=== PATIENT | male | born 1980 | race African-American/Black ===

== ENCOUNTER 2017-03-23 15:24 | Inpatient (IN) | payer OTHER ==
[~2017-03-23] VITALS: Ht 175.3 cm; Wt 78.0 kg
--- NOTE | ~2017-03-23 | HC ---
[facility] [place] [address] CONSULTATION Name: CHRISTINE EMANUEL Room #: 316-P ADM IN M.R.#: [id number] Admission: 03/23/17 Attend Phys: Ayad Grullon MD Discharge: Date of : 82 Report #: [id number] THIS REPORT FOR: //name// CC: [facility] physician/PCP Ayad Grullon REASON FOR CONSULTATION: Acute kidney injury. REASON FOR PRESENTATION: Not feeling well. HISTORY OF PRESENT ILLNESS: The patient is known to have sarcoidosis since 2008. He presented with numerous complaints including not being able to handle his daily activities and not feeling well in the last few days. His presentation values revealed hypercalcemia and acute kidney injury. His history dates back to 2008 when he had 1 biopsy that showed sarcoidosis. His presenting symptoms to [facility] at that time were numerous and nonspecific. He tells me that he had been treated occasionally with steroids. His most recent hospitalization was back in November of this year in [facility] and at that time, he was told that he had acute kidney injury and was prescribed steroids with resolution of his acute kidney injury as he stated. He was prescribed some refills of the steroids. He used to self manage himself with taper of the steroids. He does not recall his most recent values of his kidney function, but he was told the creatinine is running anywhere from 3-4. This is conflicting with what he was told in [facility] where he was told that his acute kidney injury had resolved. PAST MEDICAL HISTORY: Sarcoidosis. PAST SURGICAL HISTORY: Lung biopsy. SOCIAL HISTORY: No drug or alcohol abuse. He works as a pharmacy student. FAMILY HISTORY: Significant for sarcoidosis in his mother. MEDICATIONS: Include tapered dose steroids. REVIEW OF SYSTEMS: GENERAL: Significant for weakness. CARDIOVASCULAR: No chest pain or palpitation. PULMONARY: No cough or hemoptysis. GASTROINTESTINAL: Decreased p.o. intake. GENITOURINARY: Decreased urine output. MUSCULOSKELETAL: Occasional arthralgias. PHYSICAL EXAMINATION: GENERAL: The patient is alert, oriented, in no apparent distress. VITAL SIGNS: Blood pressure is marginal at 102/60. He is afebrile. [facility] [address] [place] [address] CONSULTATION Name: CHRISTINE EMANUEL Room #: 316-P ADM IN M.R.#: [id number] Admission: 03/23/17 Attend Phys: Ayad Grullon MD Discharge: Date of : 82 Report #: [id number] HEAD AND NECK: No jugular venous distention. There is a midline scar in the suprasternal area. CARDIOVASCULAR: Regular with no rub detected. CHEST: Clear to auscultation bilaterally. ABDOMEN: Soft, nontender with no hepatosplenomegaly. LOWER EXTREMITIES: Old rash on both lower extremities. UPPER EXTREMITIES: Multiple tattoos. LABORATORY VALUES: Reviewed. Creatinine is 6. Calcium is down. ASSESSMENT, IMPRESSION AND PLAN: 1. Acute kidney injury. 2. Hypercalcemia. 3. Sarcoidosis. 4. We will initiate the appropriate acute kidney injury workup. The most important issue right now is to obtain his records from the [facility] facilities and I have ordered those to be retrieved. 5. Aggressive hydration. 6. Since he has been on steroids on numerous occasions, I would definitely rule out hypoadrenalism. 7. We will defer the management of the steroids issues to the primary team, though I would have liked him to be off the steroids for a possibility of kidney biopsy in case his kidney function does not improve to rule out granulomatous kidney disease related to his sarcoidosis given the . 8. We will continue to follow along. <ELECTRONICALLY SIGNED> By: Fam Dasilva MD 03/27/17 0830 1002 16 Fam Dasilva MD /nt
[2017-03-23 15:25] VITALS: BP 115/73
[2017-03-23 16:26] LABS: HEMATOCRIT 41.2 % (42.0-52.0); HEMOGLOBIN 13.8 gm/dL (14.0-18.0); MCH 27.7 pg (26.0-34.0); MCHC 33.4 g/dL (28.0-37.0); PLATELET COUNT 278 thou/uL (150-400); RBC 4.97 mil/uL (4.50-6.00); RDW 14.8 % (10.5-14.5); WBC 8.2 thou/uL (4.0-11.0)
[2017-03-23 16:33] LABS: MANUAL DIFF YES
[2017-03-23 16:35] LABS: CALCIUM 11.1 mg/dL (8.5-10.1); CREATININE 6.4 mg/dL (0.7-1.3); MAGNESIUM 2.2 mg/dL (1.8-2.4); POTASSIUM 3.1 mmol/L (3.5-5.1)
[2017-03-23 17:09] LABS: ABSOLUTE NEUTROPHILS 5.2 thou/uL (1.4-8.2); LARGE PLATELETS OCCASIONAL; TOTAL CELL COUNT 100
[2017-03-23 17:48] LABS: URINE BILIRUBIN NEGATIVE (Negative); URINE BLOOD 3+ (Negative); URINE COLOR YELLOW; URINE GLUCOSE-RANDOM* TRACE (Negative); URINE KETONES NEGATIVE (Negative); URINE LEUKOCYTES-REFLEX 3+ (Negative); URINE PROTEIN (DIPSTICK) 2+ (Negative); URINE UROBILINOGEN 0.2 E.U./dl (0.2-1.0)
[2017-03-23 17:55] LABS: CASTS None Seen /LPF (None Seen); SQUAMOUS 4-10 Moderate /LPF (0-3); URINE RBC >20 Many /HPF (0-2); URINE WBC-REFLEX >25 Many /HPF (0-5)
[2017-03-23 17:56] LABS: CRYSTALS None Seen /LPF (None Seen)
[2017-03-23 18:06] VITALS: BP 122/78
[2017-03-23 18:40] VITALS: BP 125/74
[2017-03-23 19:49] VITALS: BP 118/72
[2017-03-23 23:19] VITALS: BP 114/73
[2017-03-24 03:52] VITALS: BP 107/74
[2017-03-24 03:56] LABS: CALCIUM 10.5 mg/dL (8.5-10.1); CREATININE 6.1 mg/dL (0.7-1.3); MAGNESIUM 2.3 mg/dL (1.8-2.4)
[2017-03-24 03:58] LABS: POTASSIUM 4.9 mmol/L (3.5-5.1)
[2017-03-24 07:42] LABS: URINE BILIRUBIN NEGATIVE (Negative); URINE BLOOD 3+ (Negative); URINE COLOR YELLOW; URINE GLUCOSE-RANDOM* 1+ (Negative); URINE KETONES NEGATIVE (Negative); URINE NITRITE NEGATIVE (Negative); URINE PROTEIN (DIPSTICK) 1+ (Negative); URINE SPECIFIC GRAVITY 1.015 (1.003-1.035); URINE UROBILINOGEN 0.2 E.U./dl (0.2-1.0)
[2017-03-24 08:00] VITALS: BP 107/73
[2017-03-24 08:22] LABS: URINE RBC 0-2 Rare /HPF (0-2); URINE WBC 0-5 Rare /HPF (0-5)
[2017-03-24 08:23] LABS: BACTERIA 1-9 Few /HPF (None Seen); CASTS None Seen /LPF (None Seen); CRYSTALS None Seen /LPF (None Seen); SQUAMOUS None Seen /LPF (0-3)
[2017-03-24 15:13] LABS: URINE CREATININE-RANDOM* 40.4 mg/dL; URINE PROTEIN-RANDOM* 89.6 mg/dL (<11.9)
[2017-03-24 15:19] VITALS: BP 111/76
[2017-03-24 20:06] VITALS: BP 118/72
[2017-03-25 04:40] VITALS: BP 113/77
[2017-03-25 05:42] LABS: ABSOLUTE NEUTROPHILS 12.8 thou/uL (1.4-8.2); HEMATOCRIT 36.8 % (42.0-52.0); HEMOGLOBIN 12.2 gm/dL (14.0-18.0); LYMPHOCYTES 12.2 % (24.0-44.0); MCH 27.4 pg (26.0-34.0); MCHC 33.1 g/dL (28.0-37.0); MCV 82.9 fL (80.0-100.0); MONOCYTES 6.6 % (1.0-8.0); PLATELET COUNT 317 thou/uL (150-400); POLYS 81.2 % (36.0-66.0); RBC 4.44 mil/uL (4.50-6.00); RDW 15.4 % (10.5-14.5); WBC 15.7 thou/uL (4.0-11.0)
[2017-03-25 05:58] LABS: ALBUMIN 2.3 g/dL (3.4-5.0); PHOSPHORUS 6.4 mg/dL (2.5-4.9); POTASSIUM 4.6 mmol/L (3.5-5.1); TOTAL BILIRUBIN 0.4 mg/dL (<0.1-1.0); TOTAL PROTEIN 7.5 g/dL (6.4-8.2)
[2017-03-25 06:09] LABS: MANUAL DIFF NO
[2017-03-25 06:23] LABS: CREATININE 5.1 mg/dL (0.7-1.3)
[2017-03-25 07:18] VITALS: BP 123/84
[2017-03-25 16:35] VITALS: BP 117/80
[2017-03-25 19:58] VITALS: BP 126/83
[2017-03-26 03:30] VITALS: BP 132/87
[2017-03-26 07:24] VITALS: BP 161/102
[2017-03-26 09:12] LABS: HEMATOCRIT 36.4 % (42.0-52.0); HEMOGLOBIN 11.6 gm/dL (14.0-18.0); MCH 27.1 pg (26.0-34.0); MCHC 31.9 g/dL (28.0-37.0); MCV 84.9 fL (80.0-100.0); RBC 4.29 mil/uL (4.50-6.00); RDW 15.7 % (10.5-14.5); WBC 13.8 thou/uL (4.0-11.0)
[2017-03-26 09:21] LABS: CALCIUM 9.7 mg/dL (8.5-10.1); CREATININE 4.5 mg/dL (0.7-1.3); POTASSIUM 3.6 mmol/L (3.5-5.1)
[2017-03-26 16:01] VITALS: BP 163/108
[2017-03-26 20:02] VITALS: BP 176/107
[2017-03-26 23:45] VITALS: BP 139/83
[2017-03-27 04:11] VITALS: BP 135/85
[2017-03-27 07:16] LABS: ALBUMIN 2.3 g/dL (3.4-5.0); CREATININE 3.9 mg/dL (0.7-1.3); PHOSPHORUS 4.9 mg/dL (2.5-4.9); POTASSIUM 4.3 mmol/L (3.5-5.1)
[2017-03-27 08:00] VITALS: BP 140/98
[2017-03-27 16:00] VITALS: BP 158/106
[2017-03-27 20:00] VITALS: BP 162/97
[2017-03-28] VITALS: BP 140/84
[2017-03-28 04:00] VITALS: BP 163/97
[2017-03-28 06:06] LABS: ALBUMIN 2.3 g/dL (3.4-5.0); CALCIUM 8.9 mg/dL (8.5-10.1); CREATININE 3.6 mg/dL (0.7-1.3); PHOSPHORUS 4.5 mg/dL (2.5-4.9); POTASSIUM 3.7 mmol/L (3.5-5.1)
[2017-03-28 07:13] VITALS: BP 166/113
[2017-03-28] MEDS ORDERED: PREDNISONE 20 M20 M1 PO (08:50)
[2017-03-28 09:28] VITALS: BP 166/113
[2017-03-28] MEDS ORDERED: ANTACID650 MG PO (12:50)
[2017-03-28 13:14] VITALS: BP 166/113
== END 2017-03-28 13:07 | disposition home or self-care (01) | DRG 196 ==
LOC: ER 15:24 → 3N 17:09 → EROBS 17:09 → 3N 18:04
PROVIDERS: Emergency Medicine; Hospitalist; Nurse Practitioner Acute Care
DX: D86.9 Sarcoidosis, unspecified (principal); N17.0 Acute kidney failure with tubular necrosis; E44.0 Moderate protein-calorie malnutrition; N39.0 Urinary tract infection, site not specified; E83.52 Hypercalcemia; N18.9 Chronic kidney disease, unspecified; Z68.25 Body mass index [BMI] 25.0-25.9, adult
CPT/HCPCS: 10094

== ENCOUNTER 2017-07-01 13:21 | Emergency (ER) | payer OTHER ==
[~2017-07-01] VITALS: Ht 177.8 cm; Wt 79.4 kg
[~2017-07-01 13:21] MED LIST: ANTACID650 MG PO; PREDNISONE 20 M20 M1 PO
[2017-07-01] MEDS ORDERED: PREDNISONE 20 M20 MG PO (13:37)
== END 2017-07-01 14:14 | disposition home or self-care (01) ==
LOC: ER 13:21
DX: D86.9 Sarcoidosis, unspecified (principal); Z76.0 Encounter for issue of repeat prescription

== ENCOUNTER 2017-09-07 15:12 | Emergency (ER) | payer OTHER ==
[~2017-09-07] VITALS: Ht 175.3 cm; Wt 81.7 kg
[~2017-09-07 15:12] MED LIST changes: +PREDNISONE 20 M20 MG PO
[2017-09-07 17:40] LABS: ABSOLUTE NEUTROPHILS 6.1 thou/uL (1.4-8.2); BASOPHILS 0.9 % (0.0-2.0); EOSINOPHILS 2.6 % (0.0-3.0); HEMATOCRIT 48.7 % (42.0-52.0); HEMOGLOBIN 16.2 gm/dL (14.0-18.0); LYMPHOCYTES 16.6 % (24.0-44.0); MCH 26.6 pg (26.0-34.0); MCHC 33.2 g/dL (28.0-37.0); PLATELET COUNT 257 thou/uL (150-400); POLYS 67.9 % (36.0-66.0); RBC 6.09 mil/uL (4.50-6.00); RDW 16.7 % (10.5-14.5)
[2017-09-07 17:47] LABS: CALCIUM 9.6 mg/dL (8.5-10.1); CREATININE 3.1 mg/dL (0.7-1.3); POTASSIUM 3.5 mmol/L (3.5-5.1)
[2017-09-07] MEDS ORDERED: PREDNISONE 20 M20 M1 PO (18:28)
[2017-09-07 18:46] VITALS: BP 139/101
[2018-04-10] MEDS ORDERED: NORCO 5-325 TA1 EACH PO (16:57)
== END 2017-09-07 18:52 | disposition home or self-care (01) ==
LOC: ER 15:12
PROVIDERS: Physician Assistant
DX: D86.9 Sarcoidosis, unspecified (principal); N18.9 Chronic kidney disease, unspecified; M25.50 Pain in unspecified joint

== ENCOUNTER 2018-01-26 11:15 | Inpatient (IN) | payer OTHER ==
[~2018-01-26] VITALS: Ht 177.8 cm; Wt 91.6 kg
[2018-01-26 11:38] VITALS: BP 162/123
[2018-01-26 12:17] LABS: ABSOLUTE NEUTROPHILS 6.9 thou/uL (1.4-8.2); BASOPHILS 0.5 % (0.0-2.0); HEMATOCRIT 53.8 % (42.0-52.0); HEMOGLOBIN 17.6 gm/dL (14.0-18.0); LYMPHOCYTES 14.8 % (24.0-44.0); MCHC 32.7 g/dL (28.0-37.0); MCV 82.6 fL (80.0-100.0); MONOCYTES 5.3 % (1.0-8.0); PLATELET COUNT 168 thou/uL (150-400); POLYS 77.4 % (36.0-66.0); RBC 6.51 mil/uL (4.50-6.00); RDW 16.5 % (10.5-14.5); WBC 8.9 thou/uL (4.0-11.0)
[2018-01-26 12:27] LABS: CREATININE 2.6 mg/dL (0.7-1.3); POTASSIUM 4.3 mmol/L (3.5-5.1)
[2018-01-26 12:33] LABS: ALBUMIN 3.8 g/dL (3.4-5.0); TOTAL BILIRUBIN 1.2 mg/dL (<0.1-1.0); TOTAL PROTEIN 8.3 g/dL (6.4-8.2)
[2018-01-26 13:07] LABS: URINE BILIRUBIN 1+ (Negative); URINE BLOOD TRACE (Negative); URINE CLARITY CLEAR; URINE COLOR YELLOW; URINE GLUCOSE-RANDOM* NEGATIVE (Negative); URINE KETONES 1+ (Negative); URINE NITRITE-REFLEX NEGATIVE (Negative); URINE PROTEIN (DIPSTICK) 1+ (Negative); URINE UROBILINOGEN 0.2 E.U./dl (0.2-1.0)
[2018-01-26 13:12] LABS: ICTOTEST (BILI CONFIRMATORY) Positive (Negative); URINE LEUKOCYTES-REFLEX TRACE (Negative)
[2018-01-26 13:17] LABS: HYALINE CASTS 0-3 Few /LPF (None Seen); SQUAMOUS >10 Many /LPF (0-3)
[2018-01-26 13:18] LABS: BACTERIA-REFLEX None Seen /HPF (None Seen); CRYSTALS None Seen /LPF (None Seen); URINE RBC 0-2 Rare /HPF (0-2); URINE WBC-REFLEX 6-15 Few /HPF (0-5)
[2018-01-26 14:55] VITALS: BP 183/130
[2018-01-26 15:43] VITALS: BP 151/95
[2018-01-26 19:47] VITALS: BP 155/94
[2018-01-26 23:34] VITALS: BP 159/9; BP 159/95
[2018-01-27] VITALS (7 sets, daily range): BP systolic 135–163; BP diastolic 79–109
[2018-01-27 04:44] LABS: HEMATOCRIT 50.7 % (42.0-52.0); HEMOGLOBIN 16.5 gm/dL (14.0-18.0); MCH 26.9 pg (26.0-34.0); MCHC 32.6 g/dL (28.0-37.0); MCV 82.7 fL (80.0-100.0); RBC 6.12 mil/uL (4.50-6.00); RDW 15.9 % (10.5-14.5); WBC 7.8 thou/uL (4.0-11.0)
[2018-01-27 04:51] LABS: CALCIUM 9.1 mg/dL (8.5-10.1); CREATININE 2.4 mg/dL (0.7-1.3); POTASSIUM 4.9 mmol/L (3.5-5.1)
[2018-01-28 01:21] VITALS: BP 158/85
[2018-01-28 04:00] VITALS: BP 154/109
[2018-01-28 07:13] VITALS: BP 143/94
[2018-01-28 11:27] VITALS: BP 132/83
[2018-01-28 15:23] VITALS: BP 146/101
[2018-01-28 19:37] VITALS: BP 153/102
[2018-01-29 03:55] LABS: HEMATOCRIT 48.5 % (42.0-52.0); HEMOGLOBIN 15.6 gm/dL (14.0-18.0); MCH 26.6 pg (26.0-34.0); MCHC 32.1 g/dL (28.0-37.0); MCV 82.8 fL (80.0-100.0); RBC 5.86 mil/uL (4.50-6.00); RDW 16.6 % (10.5-14.5); WBC 13.1 thou/uL (4.0-11.0)
[2018-01-29 04:21] VITALS: BP 137/96
[2018-01-29 04:23] LABS: CALCIUM 8.7 mg/dL (8.5-10.1); CREATININE 2.1 mg/dL (0.7-1.3); POTASSIUM 4.5 mmol/L (3.5-5.1)
[2018-01-29 07:18] VITALS: BP 145/101
[2018-01-29] MEDS ORDERED: KEFLEX500 M1 PO (10:45)
[2018-01-29] MEDS ORDERED: NORVASC10 MG PO (10:46)
[2018-01-29] MEDS ORDERED: COREG6.25 MG PO (10:46)
[2018-01-29] MEDS ORDERED: PRINIVIL5 MG PO (10:52)
[2018-01-29 11:07] VITALS: BP 144/79
[2018-01-29 11:33] VITALS: BP 134/89
== END 2018-01-29 13:08 | disposition home or self-care (01) | DRG 682 ==
LOC: ER 11:15 → 2N 14:41 → EROBS 14:41 → 2N 16:05
PROVIDERS: Hospitalist; Physician Assistant
DX: N17.9 Acute kidney failure, unspecified (principal); E43 Unspecified severe protein-calorie malnutrition; N39.0 Urinary tract infection, site not specified; I12.9 Hypertensive chronic kidney disease with stage 1 through stage 4 chronic kidney disease, or unspecified chronic kidney disease; I16.0 Hypertensive urgency; D86.9 Sarcoidosis, unspecified; N18.9 Chronic kidney disease, unspecified; Z79.899 Other long term (current) drug therapy; Z68.29 Body mass index [BMI] 29.0-29.9, adult
CPT/HCPCS: 10081

== ENCOUNTER 2018-04-13 14:58 | Emergency (ER) | payer OTHER ==
[~2018-04-13] VITALS: Ht 177.8 cm; Wt 86.2 kg
[~2018-04-13 14:58] MED LIST changes: +COREG6.25 MG PO; +KEFLEX500 M1 PO; +NORCO 5-325 TA1 EACH PO; +NORVASC10 MG PO; +PRINIVIL5 MG PO
[2018-04-13] MEDS ORDERED: NAPROSYN500 MG PO (15:43)
== END 2018-04-13 16:08 | disposition home or self-care (01) ==
LOC: ER 14:58
DX: S70.12XA Contusion of left thigh, initial encounter (principal); D86.9 Sarcoidosis, unspecified; X58.XXXA Exposure to other specified factors, initial encounter; Y92.89 Other specified places as the place of occurrence of the external cause; Y99.0 Civilian activity done for income or pay; Y99.8 Other external cause status

== ENCOUNTER 2018-04-19 14:34 | Inpatient (IN) | payer OTHER ==
[~2018-04-19] VITALS: Ht 177.8 cm; Wt 98.4 kg
[~2018-04-19 14:34] MED LIST changes: +NAPROSYN500 MG PO
[2018-04-19 14:35] VITALS: BP 169/125
[2018-04-19 15:10] LABS: BASOPHILS 0.9 % (0.0-2.0); EOSINOPHILS 2.8 % (0.0-3.0); HEMATOCRIT 51.7 % (42.0-52.0); HEMOGLOBIN 17.1 gm/dL (14.0-18.0); LYMPHOCYTES 23.2 % (24.0-44.0); MCHC 33.1 g/dL (28.0-37.0); MCV 81.7 fL (80.0-100.0); MONOCYTES 10.2 % (1.0-8.0); PLATELET COUNT 231 thou/uL (150-400); POLYS 62.9 % (36.0-66.0); RBC 6.33 mil/uL (4.50-6.00); RDW 15.9 % (10.5-14.5); WBC 7.9 thou/uL (4.0-11.0)
[2018-04-19 15:14] LABS: CALCIUM 9.6 mg/dL (8.5-10.1); CREATININE 2.7 mg/dL (0.7-1.3); POTASSIUM 3.9 mmol/L (3.5-5.1)
[2018-04-19 17:05] LABS: URINE BILIRUBIN NEGATIVE (Negative); URINE BLOOD 1+ (Negative); URINE CLARITY CLEAR; URINE COLOR YELLOW; URINE GLUCOSE-RANDOM* NEGATIVE (Negative); URINE KETONES NEGATIVE (Negative); URINE NITRITE-REFLEX NEGATIVE (Negative); URINE PROTEIN (DIPSTICK) 1+ (Negative); URINE UROBILINOGEN 0.2 E.U./dl (0.2-1.0)
[2018-04-19 17:06] LABS: URINE LEUKOCYTES-REFLEX TRACE (Negative)
[2018-04-19 17:28] LABS: SQUAMOUS 0-3 Few /LPF (0-3); URINE WBC-REFLEX 6-15 Few /HPF (0-5)
[2018-04-19 17:29] LABS: BACTERIA-REFLEX None Seen /HPF (None Seen); CASTS None Seen /LPF (None Seen); CRYSTALS None Seen /LPF (None Seen); URINE RBC 3-10 Few /HPF (0-2)
[2018-04-19 18:45] VITALS: BP 171/107; BP 176/113
[2018-04-19 19:08] VITALS: BP 162/100
[2018-04-19 19:35] VITALS: BP 174/119
[2018-04-19 23:30] VITALS: BP 156/108
[2018-04-20 03:45] VITALS: BP 156/93
[2018-04-20 04:26] LABS: CALCIUM 8.6 mg/dL (8.5-10.1); CREATININE 2.6 mg/dL (0.7-1.3); POTASSIUM 4.4 mmol/L (3.5-5.1)
[2018-04-20 08:28] VITALS: BP 189/123
[2018-04-20] MEDS ORDERED: PRINIVIL5 MG PO (10:01)
[2018-04-20] MEDS ORDERED: CATAPRES0.1 MG PO (10:01)
[2018-04-20] MEDS ORDERED: NORVASC10 MG PO (10:01)
[2018-04-20 12:03] VITALS: BP 137/96
[2018-04-20 12:05] VITALS: BP 137/96
[2018-04-20 12:38] VITALS: BP 137/96
== END 2018-04-20 12:21 | disposition home or self-care (01) | DRG 305 ==
LOC: ER 14:34 → EROBS 18:11 → 3W 18:11
PROVIDERS: Hospitalist; Student in an Organized Health Care Education/Training Program
DX: I16.0 Hypertensive urgency (principal); D86.9 Sarcoidosis, unspecified; I10 Essential (primary) hypertension; N18.9 Chronic kidney disease, unspecified; Z79.899 Other long term (current) drug therapy
CPT/HCPCS: 10879

== ENCOUNTER 2018-06-14 17:04 | Inpatient (IN) | payer OTHER ==
[~2018-06-14] VITALS: Ht 177.8 cm; Wt 103.8 kg
--- NOTE | ~2018-06-14 | HC ---
[facility] [place] [address] CONSULTATION Name: CHRISTINE EMANUEL Room #: 200-I ADM IN M.R.#: [id number] Admission: 06/14/18 Attend Phys: Tez Castro MD Discharge: Date of : 82 Report #: [id number] THIS REPORT FOR: //name// CC: Tez Franco DATE OF SERVICE: 06/15/2018 REASON FOR CONSULTATION: Leukocytosis in the setting of left retroperitoneal hematoma. HISTORY OF PRESENT ILLNESS: The patient is a 37-year-old with longstanding sarcoidosis, has been on 20-60 mg of prednisone a day for at least 5 years. He has primary pulmonary disease. He has had known nephrolithiasis. He works as a clinical pharmacy specialist. Yesterday while standing, lifting some boxes as part of his normal routine, developed acute onset of left flank pain associated with no radicular features. No fever, chills or sweats. Pain did not improve and he presented to the Emergency Room for further evaluation. He has also had a history of hypertension, most recently and has been on antihypertensive program. He reports no other trauma. Over the last several hours, he has noted some bruising to the anterior aspect of his upper thigh. No nasal bleeding. No bleeding with tooth brushing. No hematuria or blood in his stool. REVIEW OF SYSTEMS: Ten point review otherwise negative. ALLERGIES: None. MEDICATIONS: As noted on his MAR, now on ceftriaxone. PAST MEDICAL HISTORY: Sarcoidosis, nephrolithiasis, chronic kidney disease, and hypertension. FAMILY HISTORY: Noncontributory. SOCIAL HISTORY: Nonsmoker, no significant alcohol intake. No HIV risks. PHYSICAL EXAMINATION: VITAL SIGNS: He is afebrile and hemodynamically stable. GENERAL: He is alert and cooperative, ambulatory, in no distress. He appeared physically fit. He was in no distress. Afebrile and hemodynamically stable. SKIN: He had ecchymosis to the left anterior thigh. No other skin lesions identified. EYES: He had what appeared to be corneal scarring on the right. Left eye was unremarkable. No conjunctivitis. MOUTH: Without ulceration or mucositis. NECK: Supple with no thyromegaly, mass or JVD. [facility] [address] [place] [address] CONSULTATION Name: CHRISTINE EMANUEL Room #: 200-I ADM IN M.R.#: [id number] Admission: 06/14/18 Attend Phys: Tez Castro MD Discharge: Date of : 82 Report #: [id number] BACK: Midline spine with no spinal tenderness. He did have mild left CVA tenderness. No palpable adenopathy. LUNGS: Clear. HEART: Regular. ABDOMEN: Soft with tenderness in the left lower abdomen. Range of motion in the left hip was normal. NEUROLOGIC: Cranial nerves intact. Strength in his lower extremities was normal. Sensation intact. LABORATORY STUDIES: Sodium 137, potassium 4.6, bicarbonate 21, creatinine 2.1, alkaline phosphatase 125, ALT 46. Albumin at 2.6. INR 1. Hemoglobin 15.8 on admission, today was 13.3; white count initially 23.7, now 15.1; platelet count 189,000. Urinalysis, moderate wbc's, few bacteria. Blood cultures and urine culture pending. CT scan of the abdomen showed bilateral nephrolithiasis and a left psoas hematoma 16 x 15 x 9 cm. IMPRESSION: A 37-year-old with spontaneous left retroperitoneal hematoma. I am suspecting his leukocytosis is secondary to this acute event. He does have mild pyuria and bacteriuria, which will need to be evaluated by urine culture. I agree with your current treatment program with ceftriaxone, pending culture results. 1. Sarcoidosis, on high dose corticosteroids. No evidence of increased adenopathy on CT scan. 2. Hypertension. 3. Chronic kidney disease. RECOMMENDATIONS: Agree with ceftriaxone. Follow serial CBCs. I would expect the WBC count to gradually improve over time. We will await his urine culture results and adjust his antibiotics accordingly. <ELECTRONICALLY SIGNED> By: Reza Galvan MD 06/16/18 0756 [id number] Reza Galvan MD /nt
--- NOTE | ~2018-06-14 | HC ---
[facility] [place] [address] CONSULTATION Name: CHRISTINE EMANUEL Room #: 200-I ADM IN .R.#: [id number] Admission: 06/14/18 Attend Phys: Tez Castro MD Discharge: Date of : 82 Report #: [id number] THIS REPORT FOR: //name// CC: Tez Gee Box DATE OF SERVICE: 06/15/2018 REASON FOR CONSULTATION: Chronic kidney disease. 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 He also has nephrolithiasis. He presents at this time with spontaneous left-sided retroperitoneal bleed. Hemoglobin has fallen marginally from his baseline. He has got pain. Blood pressures in the hospital here are poorly controlled, but he has been given high doses of steroids and nonsteroidals which certainly are contributing to that. HOME MEDICATIONS: Include lisinopril, amlodipine, prednisone 40 mg a day and clonidine. PAST MEDICAL HISTORY: Mostly remarkable for the longstanding sarcoidosis initially affecting his pulmonary, but also with kidney stones, renal involvement and hypertension. ALLERGIES: No known medical allergies. FAMILY HISTORY: Mother had sarcoidosis, has , mostly pulmonary complications. SOCIAL HISTORY: No substantial cigarettes or alcohol. REVIEW OF SYSTEMS: GENERAL: His only problem has been this sudden left-sided flank pain that started a few days ago. EYES: His vision is okay. He does have some clouding of his right eye, but does not impair his vision. ENT: Hearing okay, swallows okay. No mouth ulcers. ENDOCRINE: No diabetes or thyroid disease. RESPIRATORY: Denies shortness of breath, pleuritic pain, hemoptysis. CARDIAC: Denies chest pain, angina or arrhythmia. GASTROINTESTINAL: No nausea, vomiting or diarrhea. GENITOURINARY: No dysuria or hematuria. He has had one episode of renal stone passage. NEUROLOGIC: No seizure, syncope, stroke or neuropathy. Overall, energy is good and strength. [facility] [address] [place] [address] CONSULTATION Name: CHRISTINE EMANUEL Room #: 200-I [facility] IN .R.#: [id number] Admission: 06/14/18 Attend Phys: Tez Castro MD Discharge: Date of : 82 Report #: [id number] PHYSICAL EXAMINATION: GENERAL: Reasonably well-appearing young man, in no distress. SKIN: Unremarkable. SKELETAL: Slightly heavy. HEENT: Extraocular movements are full. Clouding of the right eye as mentioned above. Vision is okay. No scleral icterus. Hearing okay. Mucous membranes moist. Tongue, buccal mucosa benign. NECK: Supple, no lymphadenopathy. CHEST: Clear to auscultation. HEART: Regular. ABDOMEN: Soft and nontender. EXTREMITIES: No edema. NEUROLOGIC: Grossly intact. LABORATORY DATA: Hemoglobin is down to 13.3 with IV fluids, platelets 189. Sodium 137, potassium 4.6, chloride 105, bicarbonate 21, BUN 24, creatinine 2.1. CT scan demonstrated the retroperitoneal hematoma likely spontaneous on the left and he has got some nephrolithiasis which is chronic. ASSESSMENT AND PLAN: 1. Retroperitoneal hematoma. This appears to have been spontaneous. No specific treatment is indicated. 2. Chronic kidney disease, appears to be due to sarcoidosis. We will need to continue his prednisone, which is typically a relatively effective treatment. 3. Hypertension. His hypertension is somewhat difficult. I will add chlorthalidone, increase his lisinopril, get him off his steroids and try to keep him away from the nonsteroidals. I suspect this will improve. He does need to be followed in the office. 4. Longstanding sarcoidosis, on chronic prednisone therapy managed by Dr. Franco. By: [id number] [id number] Arley Medina MD /nt
--- NOTE | ~2018-06-14 | HC ---
[facility] [place] [address] CONSULTATION Name: CHRISTINE EMANUEL Room #: 200-I [facility] IN .R.#: [id number] Admission: 06/14/18 Attend Phys: Tez Castro MD Discharge: 06/17/18 Date of : 82 Report #: [id number] THIS REPORT FOR: //name// CC: Tez Franco HISTORY OF PRESENT ILLNESS: This patient presented to the Emergency Room with severe back pain of approximately 3-day duration and has been admitted with findings of a large retroperitoneal hematoma. He is unaware of any recent injury, trauma or physical activity. Pain since admission has improved. He is unaware of any known prior history of coagulopathy and 5 years ago, was seen in the Emergency Room at [facility] for nosebleed, which was packed. He did not see a airplane woodworker or have any post-ER followups. He was recently in [facility] and has had poorly controlled hypertension with renal insufficiency. He has been on high dose steroids for at least the past 10+ months from Dr. Franco for sarcoidosis. FAMILY HISTORY: Negative for any known coagulation abnormalities. ALLERGIES: None known. SOCIAL HISTORY: He is a nonsmoker. He does drink and uses illicit drugs. MEDICATIONS: As listed on the MFR. REVIEW OF SYSTEMS: As in the history of present illness with pain radiating down into the scrotum. His remaining system review is negative. PHYSICAL EXAMINATION: GENERAL: Shows an alert black male, who was sitting in a chair. HEENT: Normocephalic. NECK: Supple. CHEST: Clear. CARDIOVASCULAR: Normal S1, S2. ABDOMEN: Shows obesity. EXTREMITIES: No clubbing, cyanosis, edema. SKIN: Shows a bruise on the inner left thigh. NEUROLOGIC: No focal localizing signs. PSYCHIATRIC: Not agitated or confused. LYMPHATICS: Revealed no palpable adenopathy or splenomegaly. LABORATORY DATA: Reviewed and shows a normal platelet count, PT, PTT and fibrinogen. [facility] [address] [place] [address] CONSULTATION Name: CHRISTINE EMANUEL Room #: 200-I [facility] IN [facility].#: [id number] Admission: 06/14/18 Attend Phys: Tez Castro MD Discharge: 06/17/18 Date of : 82 Report #: [id number] ASSESSMENT: Probable spontaneous left retroperitoneal hematoma. PLAN: I did order a platelet aggregation study, which may be abnormal at present due to his known renal failure and recent use of ibuprofen along with BC powders. We have discussed avoiding any further nonsteroidal or aspirin use and using Tylenol instead for pain. He needs to try to get his blood pressure under better control as this may be a complicating issue for this bleed as well as possibly reducing his steroid dose with an element of capillary fragility also related to his long-standing high dose prednisone therapy. Thanks for allowing me to see him with you in consultation and asking me to participate in his care. <ELECTRONICALLY SIGNED> By: Halle Narvaez MD 06/25/18 1501 1715 0442 MD ni Luque
[~2018-06-14 17:04] MED LIST changes: +CATAPRES0.1 MG PO
[2018-06-14 17:05] VITALS: BP 212/140
[2018-06-14 17:33] LABS: URINE BILIRUBIN NEGATIVE (Negative); URINE BLOOD 1+ (Negative); URINE CLARITY CLEAR; URINE COLOR YELLOW; URINE GLUCOSE-RANDOM* NEGATIVE (Negative); URINE KETONES TRACE (Negative); URINE PROTEIN (DIPSTICK) 1+ (Negative); URINE UROBILINOGEN 0.2 E.U./dl (0.2-1.0)
[2018-06-14 17:34] LABS: ABSOLUTE NEUTROPHILS 21.4 thou/uL (1.4-8.2); BASOPHILS 0.4 % (0.0-2.0); EOSINOPHILS 0.3 % (0.0-3.0); HEMATOCRIT 48.6 % (42.0-52.0); HEMOGLOBIN 15.8 gm/dL (14.0-18.0); LYMPHOCYTES 5.4 % (24.0-44.0); MCHC 32.6 g/dL (28.0-37.0); MCV 82.6 fL (80.0-100.0); MONOCYTES 3.3 % (1.0-8.0); PLATELET COUNT 207 thou/uL (150-400); POLYS 90.6 % (36.0-66.0); RBC 5.88 mil/uL (4.50-6.00); RDW 16.2 % (10.5-14.5); WBC 23.7 thou/uL (4.0-11.0)
[2018-06-14 17:35] LABS: CALCIUM 9.4 mg/dL (8.5-10.1); CREATININE 2.2 mg/dL (0.7-1.3); POTASSIUM 3.6 mmol/L (3.5-5.1)
[2018-06-14 17:36] LABS: URINE LEUKOCYTES-REFLEX TRACE (Negative); URINE NITRITE-REFLEX POSITIVE (Negative)
[2018-06-14 17:43] LABS: ALBUMIN 3.5 g/dL (3.4-5.0); TOTAL BILIRUBIN 1.7 mg/dL (<0.1-1.0); TOTAL PROTEIN 8.3 g/dL (6.4-8.2)
[2018-06-14 17:45] LABS: CASTS None Seen /LPF (None Seen); CRYSTALS None Seen /LPF (None Seen)
[2018-06-14 17:46] LABS: BACTERIA-REFLEX 1-9 Few /HPF (None Seen); SQUAMOUS 0-3 Few /LPF (0-3); URINE RBC 0-2 Rare /HPF (0-2)
[2018-06-14 18:06] LABS: ANISOCYTOSIS 1+; POLYCHROMASIA OCCASIONAL
[2018-06-14 18:31] VITALS: BP 165/115
[2018-06-14 18:35] LABS: APTT 30.3 Seconds (24.5-32.8); PROTIME 10.2 Seconds (9.3-11.4)
[2018-06-14 18:53] VITALS: BP 166/111
[2018-06-14 19:18] VITALS: BP 163/117
[2018-06-15] VITALS (7 sets, daily range): BP systolic 135–153; BP diastolic 89–108
[2018-06-15 03:32] LABS: HEMATOCRIT 42.2 % (42.0-52.0); MCH 26.1 pg (26.0-34.0); MCHC 31.4 g/dL (28.0-37.0); MCV 83.1 fL (80.0-100.0); RBC 5.08 mil/uL (4.50-6.00); RDW 16.1 % (10.5-14.5); WBC 15.1 thou/uL (4.0-11.0)
[2018-06-15 03:38] LABS: HEMOGLOBIN 13.3 gm/dL (14.0-18.0)
[2018-06-15 03:51] LABS: ALBUMIN 2.6 g/dL (3.4-5.0); CALCIUM 8.3 mg/dL (8.5-10.1); CREATININE 2.1 mg/dL (0.7-1.3); POTASSIUM 4.6 mmol/L (3.5-5.1); TOTAL BILIRUBIN 0.7 mg/dL (<0.1-1.0); TOTAL PROTEIN 6.5 g/dL (6.4-8.2)
[2018-06-16] VITALS (8 sets, daily range): BP systolic 135–157; BP diastolic 73–116
[2018-06-17 04:01] LABS: HEMOGLOBIN 13.5 gm/dL (14.0-18.0); MCH 26.6 pg (26.0-34.0); MCHC 32.1 g/dL (28.0-37.0); MCV 82.8 fL (80.0-100.0); PLATELET COUNT 228 thou/uL (150-400); RBC 5.07 mil/uL (4.50-6.00); RDW 16.5 % (10.5-14.5); WBC 20.6 thou/uL (4.0-11.0)
[2018-06-17 04:20] LABS: CALCIUM 9.1 mg/dL (8.5-10.1); CREATININE 2.3 mg/dL (0.7-1.3); PHOSPHORUS 4.2 mg/dL (2.5-4.9); POTASSIUM 4.1 mmol/L (3.5-5.1); TOTAL BILIRUBIN 0.8 mg/dL (<0.1-1.0); TOTAL PROTEIN 7.3 g/dL (6.4-8.2)
[2018-06-17 04:29] VITALS: BP 151/106
[2018-06-17 04:32] LABS: ABSOLUTE NEUTROPHILS 15.9 thou/uL (1.4-8.2); ATYPICAL LYMPHS 3 %
[2018-06-17 04:33] LABS: ANISOCYTOSIS 1+
[2018-06-17 07:31] VITALS: BP 151/100
[2018-06-17] MEDS ORDERED: PREDNISONE 20 M20 M1 PO (08:11)
[2018-06-17] MEDS ORDERED: ACCUPRIL40 MG PO (08:34)
[2018-06-17 11:58] VITALS: BP 130/81
[2018-06-17 12:55] VITALS: BP 130/81
== END 2018-06-17 14:00 | disposition home or self-care (01) | DRG 314 ==
LOC: ER 17:04 → 2N 18:29 → EROBS 18:29 → 2N 18:53
PROVIDERS: Emergency Medicine; Family Medicine; Internal Medicine Nephrology; Specialist
DX: R58 Hemorrhage, not elsewhere classified (principal); E43 Unspecified severe protein-calorie malnutrition; A41.9 Sepsis, unspecified organism; N12 Tubulo-interstitial nephritis, not specified as acute or chronic; N39.0 Urinary tract infection, site not specified; I16.0 Hypertensive urgency; N18.9 Chronic kidney disease, unspecified; I12.9 Hypertensive chronic kidney disease with stage 1 through stage 4 chronic kidney disease, or unspecified chronic kidney disease; D86.9 Sarcoidosis, unspecified; E66.9 Obesity, unspecified; Z68.32 Body mass index [BMI] 32.0-32.9, adult; Z87.442 Personal history of urinary calculi; Z91.14 Patient's other noncompliance with medication regimen; Z79.899 Other long term (current) drug therapy; Z83.6 Family history of other diseases of the respiratory system
CPT/HCPCS: 10081

== ENCOUNTER 2018-09-02 14:45 | Emergency (ER) | payer OTHER ==
[~2018-09-02] VITALS: Ht 180.3 cm; Wt 78.0 kg
[~2018-09-02 14:45] MED LIST changes: +ACCUPRIL40 MG PO
[2018-09-02] MEDS ORDERED: AUGMENTIN 500-1 EACH PO (16:17)
[2018-09-02 16:43] VITALS: BP 142/94
== END 2018-09-02 16:48 | disposition home or self-care (01) ==
LOC: ER 14:45
DX: J18.8 Other pneumonia, unspecified organism (principal); I12.9 Hypertensive chronic kidney disease with stage 1 through stage 4 chronic kidney disease, or unspecified chronic kidney disease; N18.9 Chronic kidney disease, unspecified; D86.9 Sarcoidosis, unspecified; J06.9 Acute upper respiratory infection, unspecified; B34.9 Viral infection, unspecified

== ENCOUNTER 2019-04-09 21:39 | Emergency (ER) | payer OTHER ==
[~2019-04-09] VITALS: Ht 177.8 cm; Wt 85.7 kg
[~2019-04-09 21:39] MED LIST changes: +AUGMENTIN 500-1 EACH PO
[2019-04-09 23:22] LABS: ABSOLUTE NEUTROPHILS 6.6 thou/uL (1.4-8.2); BASOPHILS 0.6 % (0.0-2.0); EOSINOPHILS 2.1 % (0.0-3.0); HEMATOCRIT 54.6 % (42.0-52.0); LYMPHOCYTES 20.2 % (24.0-44.0); MCH 27.1 pg (26.0-34.0); MCV 82.3 fL (80.0-100.0); MONOCYTES 8.3 % (1.0-8.0); PLATELET COUNT 170 thou/uL (150-400); POLYS 68.8 % (36.0-66.0); RBC 6.64 mil/uL (4.50-6.00); RDW 16.2 % (10.5-14.5); WBC 10.4 thou/uL (4.0-11.0)
[2019-04-09 23:28] LABS: CALCIUM 9.4 mg/dL (8.5-10.1); CREATININE 2.9 mg/dL (0.7-1.3); POTASSIUM 3.5 mmol/L (3.5-5.1)
[2019-04-10] MEDS ORDERED: PREDNISONE 20 M20 MG PO (00:36)
[2019-04-10 00:39] LABS: URINE BILIRUBIN NEGATIVE (Negative); URINE BLOOD 1+ (Negative); URINE CLARITY CLEAR; URINE COLOR YELLOW; URINE GLUCOSE-RANDOM* NEGATIVE (Negative); URINE KETONES NEGATIVE (Negative); URINE LEUKOCYTES 2+ (Negative); URINE NITRITE POSITIVE (Negative); URINE PROTEIN (DIPSTICK) TRACE (Negative)
[2019-04-10 00:47] LABS: CASTS None Seen /LPF (None Seen); MUCUS None Seen strn/LPF (None Seen); SQUAMOUS 0-3 Few /LPF (0-3); WBC CLUMPS Few (None Seen)
[2019-04-10 00:48] LABS: BACTERIA None Seen /HPF (None Seen); CRYSTALS None Seen /LPF (None Seen); URINE RBC 0-2 Rare /HPF (0-2)
[2019-04-10 00:54] VITALS: BP 165/104
--- NOTE | 2019-04-10 10:57 | EKG ---
[facility] [address] [place] [address] ELECTROCARDIOGRAM REPORT Name: CHRISTINE EMANUEL Room #: DEP MAGO Christian#: [id number] Admission: 04/09/19 Attend Phys: Discharge: 04/10/19 Date of : 82 Report #: [id number] THIS REPORT FOR: //name// [facility] ED Test Date: 2019-04-09 Test Time: 22:53:36 Pat Name: CHRISTINE EMANUEL Department: Room: Gender: Medical Educator: Braxton : 1980 Requested By: Chance Mercedes Order Number: [id number] MD: Matt Poole Measurements Intervals [place] Rate: 84 P: 5 SD: 171 QRS: 1 QRSD: 87 T: 29 QT: 366 QTc: 433 Interpretive Statements Sinus rhythm Left atrial enlargement Abnormal R-wave progression, early transition No previous ECG available for comparison Electronically Signed On 04-10-2019 10:57:18 CDT by Matt Poole [email or web address] <ELECTRONICALLY SIGNED> By: Matt Poole MD 04/10/19 1057 2253 2253 Matt Poole MD /EPI
== END 2019-04-10 01:19 | disposition home or self-care (01) ==
LOC: ER 21:39
PROVIDERS: Emergency Medicine
DX: R53.81 Other malaise (principal); R53.83 Other fatigue; I10 Essential (primary) hypertension; D86.9 Sarcoidosis, unspecified

== ENCOUNTER 2019-04-17 11:30 | Emergency (ER) | payer BC, OTHER ==
[~2019-04-17] VITALS: Ht 175.3 cm; Wt 80.7 kg
[2019-04-17 12:24] LABS: URINE BILIRUBIN NEGATIVE (Negative); URINE BLOOD 2+ (Negative); URINE CLARITY CLEAR; URINE COLOR YELLOW; URINE GLUCOSE-RANDOM* NEGATIVE (Negative); URINE KETONES NEGATIVE (Negative); URINE PROTEIN (DIPSTICK) 2+ (Negative); URINE SPECIFIC GRAVITY 1.025 (1.005-1.035); URINE UROBILINOGEN 0.2 E.U./dl (0.2-1.0)
[2019-04-17 12:25] LABS: URINE LEUKOCYTES-REFLEX 2+ (Negative); URINE NITRITE-REFLEX POSITIVE (Negative)
[2019-04-17 12:42] LABS: AMORPHOUS URATES Few /LPF (None Seen); BACTERIA-REFLEX 1-9 Few /HPF (None Seen); CASTS None Seen /LPF (None Seen); SQUAMOUS 0-3 Few /LPF (0-3); URINE RBC 3-10 Few /HPF (0-2); URINE WBC-REFLEX >25 Many /HPF (0-5); WBC CLUMPS Moderate (None Seen)
[2019-04-17 12:56] LABS: ABSOLUTE NEUTROPHILS 4.6 thou/uL (1.4-8.2); BASOPHILS 0.7 % (0.0-2.0); EOSINOPHILS 2.7 % (0.0-3.0); HEMATOCRIT 57.2 % (42.0-52.0); HEMOGLOBIN 18.4 gm/dL (14.0-18.0); MCH 26.5 pg (26.0-34.0); MCHC 32.2 g/dL (28.0-37.0); MCV 82.2 fL (80.0-100.0); MONOCYTES 11.8 % (1.0-8.0); PLATELET COUNT 189 thou/uL (150-400); POLYS 66.8 % (36.0-66.0); RBC 6.96 mil/uL (4.50-6.00); RDW 16.6 % (10.5-14.5); WBC 6.9 thou/uL (4.0-11.0)
[2019-04-17 13:15] LABS: ANION GAP 10 mmol/L (7-16); BUN 19 mg/dL (7-18); CHLORIDE 101 mmol/L (98-107); CO2 26 mmol/L (21-32); CREATININE 2.8 mg/dL (0.7-1.3); GLUCOSE 92 mg/dL (74-106); POTASSIUM 3.6 mmol/L (3.5-5.1); SODIUM 137 mmol/L (136-145)
[2019-04-17 13:20] LABS: ALBUMIN 3.5 g/dL (3.4-5.0); SGOT 55 U/L (15-37); SGPT 74 U/L (30-65); TOTAL BILIRUBIN 0.5 mg/dL (<0.1-1.0); TROPONIN-I <0.06 ng/mL (<0.06)
[2019-04-17 13:34] LABS: TOTAL PROTEIN 8.4 g/dL (6.4-8.2)
[2019-04-17] MEDS ORDERED: CIPRO500 MG PO (13:59)
[2019-04-17 14:12] VITALS: BP 147/111
--- NOTE | 2019-04-18 10:42 | EKG ---
[facility] [address] [place] [address] ELECTROCARDIOGRAM REPORT Name: CHRISTINE EMANUEL Room #: DEP MAGO Christian#: [id number] Admission: 04/17/19 Attend Phys: Discharge: 04/17/19 Date of : 82 Report #: [id number] THIS REPORT FOR: //name// [facility] ED Test Date: 2019-04-17 Test Time: 11:41:55 Pat Name: CHRISTINE EMANUEL Department: Room: Gender: M Substitute Nurse: NICKI : 1980 Requested By: Kacie Puentes Order Number: [id number] MD: Rikki Porter Measurements Intervals [place] Rate: 95 P: 13 NE: 163 QRS: -4 QRSD: 85 T: 62 QT: 362 QTc: 455 Interpretive Statements Sinus rhythm Abnormal R-wave progression, early transition Left ventricular hypertrophy Compared to ECG 04/09/2019 22:53:36 No significant change was found Electronically Signed On 04-18-2019 10:42:46 CDT by Rikki Porter [email or web address] <ELECTRONICALLY SIGNED> By: Rikki Porter MD, [facility] 04/18/19 1042 1141 1141 Rikki Porter MD, FACC /EPI
== END 2019-04-17 14:12 | disposition home or self-care (01) ==
LOC: ER 11:30
PROVIDERS: Nurse Practitioner Family
DX: N39.0 Urinary tract infection, site not specified (principal); D86.9 Sarcoidosis, unspecified; I10 Essential (primary) hypertension